=== PATIENT | male | born 1985 | race Caucasian/White ===

== ENCOUNTER 2023-12-07 05:57 | Emergency (ER) | payer OTHER ==
[~2023-12-07] VITALS: Ht 180.3 cm; Wt 109.1 kg
[2023-12-07 06:59] LABS: BASO # 0.1 10^3/uL (0.0-0.2); BASO % 0.6 % (0.0-1.0); EOS # 0.2 10^3/uL (0.0-0.5); EOS % 2.2 % (0.0-3.0); HEMATOCRIT 45.7 % (42.0-52.0); HEMOGLOBIN 15.6 g/dl (13.5-17.5); LYMPH # 1.8 10^3/uL (1.5-5.0); LYMPH % 23.1 % (24.0-44.0); MEAN CORPUSCULAR HEMOGLOBIN 29.2 pg (27.0-33.0); MEAN CORPUSCULAR HGB CONC 34.1 g/dl (32.0-36.5); MEAN CORPUSCULAR VOLUME 85.4 fl (80.0-96.0); MONO # 0.6 10^3/uL (0.0-0.8); MONO % 7.5 % (2.0-8.0); NEUTROPHILS # 5.2 10^3/uL (1.5-8.5); NEUTROPHILS % 66.5 % (36.0-66.0); PLATELET COUNT, AUTOMATED 342 10^3/uL (150-450); RED BLOOD COUNT 5.35 10^6/uL (4.30-6.10); WHITE BLOOD COUNT 7.9 10^3/uL (4.0-10.0)
[2023-12-07 07:21] LABS: ALKALINE PHOSPHATASE 87 U/L (46-116); ALT/SGPT 40 U/L (7.0-40); AST/SGOT 23 U/L (<34); BILIRUBIN,TOTAL 0.5 MG/DL (0.3-1.2); BLOOD UREA NITROGEN 20 MG/DL (9-23); CALCIUM LEVEL 9.2 MG/DL (8.5-10.1); CARBON DIOXIDE LEVEL 28 MMOL/L (20-31); CHLORIDE LEVEL 106 MMOL/L (98-107); CREATININE FOR GFR 1.17 MG/DL (0.70-1.30); GLOMERULAR FILTRATION RATE > 60.0 (>60); GLUCOSE, FASTING 103 MG/DL (60-100); POTASSIUM SERUM 4.3 MMOL/L (3.5-5.1); SODIUM LEVEL 139 MMOL/L (136-145); TOTAL PROTEIN 7.3 G/DL (5.7-8.2)
[2023-12-07] MEDS: NS 1,000 ML IV ONE (08:10)
[2023-12-07] MEDS: KETOROLAC 30 MG/ML 1ML VIAL IV ONE (08:11)
[2023-12-07] MEDS: ONDANSETRON 4MG 2ML VIAL IV ONE (08:11)
[2023-12-07] MEDS ORDERED: FLOM0.4C39 PO (09:24)
[2023-12-07] MEDS ORDERED: IBUP80TA PO (09:24)
[2023-12-07] MEDS ORDERED: ONDA4TAB6 PO (09:24)
[2023-12-07] MEDS ORDERED: HYDR-3713 PO (09:24)
[2023-12-07] MEDS: ACETAMINOPHEN 325 MG TAB PO ONE (09:51)
[2023-12-07] MEDS: TAMSULOSIN 0.4 MG CAP PO ONE (09:51)
[2023-12-07 12:06] VITALS: BP 182/110
[2023-12-07] MEDS: amLODIPine 5 MG TAB PO ONE (12:06)
[2023-12-07 13:16] VITALS: BP 160/89; TEMP 98.2; O2SAT 97
[2023-12-07] MEDS ORDERED: CHLO125TA PO (13:21)
== END 2023-12-07 13:34 | disposition home or self-care (01) ==
LOC: M ED 05:57
DX: N20.1 Calculus of ureter (principal); N20.0 Calculus of kidney
CPT/HCPCS: 74176; 80053; 81001; 85025; 96374; 96375; 99284; J1885; J2405

== ENCOUNTER 2024-06-11 18:09 | Emergency (ER) | payer OTHER ==
[~2024-06-11] VITALS: Ht 180.3 cm; Wt 116.6 kg
[~2024-06-11 18:09] MED LIST: CHLO125TA PO; FLOM0.4C39 PO; HYDR-3713 PO; IBUP80TA PO; ONDA-282 PO
[2024-06-11 18:11] VITALS: TEMP 96.4; O2SAT 98
[2024-06-11 18:17] VITALS: BP 188/132
== END 2024-06-11 18:56 | disposition left against medical advice (07) ==
LOC: M ED 18:09
DX: Z53.21 Procedure and treatment not carried out due to patient leaving prior to being seen by health care provider (principal)